=== PATIENT | female | born 1955 | race Caucasian/White ===

== ENCOUNTER → 2019-08-26 | Day surgery (SDC) | payer MEDICARE ==
[2019-08-25 09:59] VITALS: BMI 31.8
--- NOTE | 2019-08-25 14:31 | HP ---
HISTORY AND PHYSICAL DATE OF SURGERY: 08/26/2019 Linda Szymanski is a 64-year-old patient seen with progressive left shoulder pain. We discussed options for treatment. She elected to proceed with left shoulder arthroscopy. Consent regarding the procedure was obtained. PAST MEDICAL HISTORY: Hypertension, hyperlipidemia, iah-qyfdjis-nfkhcclag diabetes. PAST SURGICAL HISTORY: Right shoulder arthroscopy. DAILY MEDICATIONS: Effexor, Januvia, Lipitor, lisinopril. ALLERGIES: None. SOCIAL HISTORY: Denies current tobacco use. PHYSICAL EVALUATION OF THE LEFT SHOULDER: Flexion is 50 degrees. Abduction is 40 degrees, external rotations 0 with pain and weakness. There is tenderness along the anterolateral acromion and rotator cuff insertion site. Impingement is positive at 90, her distal neurovascular exam is intact. Drop-arm sign positive. RADIOGRAPHS OF THE LEFT SHOULDER: Reveal a type 2 anterior acromion, acromioclavicular joint osteoarthritis with cystic changes of the tuberosity. IMPRESSION: 1. Left shoulder impingement with rotator cuff tear. 2. Left shoulder acromioclavicular joint osteoarthritis. 3. Hypertension. 4. Hyperlipidemia. 5. Cyl-zscwgyn-rdxkeqivm diabetes. PLAN: Left shoulder arthroscopy with subacromial decompression, arthroscopic rotator cuff repair, Marina procedure and debridement. MMODL / IJN: [id number] /
[~2019-08-26] MED LIST: GLYCOPYRROLATE 0.2 MG/ML 2 ML VIAL ONE; HYDROmorphone 0.5 MG/0.5 ML SYRINGE IVP PRN; LACTATED RINGERS 1,000 ML IV ONE; LACTATED RINGERS 1,000 ML IV SCH; LIDOCAINE 1% (10MG/ML) FOR IV START INTRADERMA ONE; MIDAZOLAM 2 MG/2 ML VIAL IVP ONE; MIDAZOLAM 2 MG/2 ML VIAL ONE; NEOSTIGMINE 1 MG/ML 10 ML VIAL ONE; ONDANSETRON 4 MG/2 ML VIAL IVP ONE; PROPOFOL 10 MG/ML 20 ML VIAL IV ONE; ROCURONIUM BROMIDE 10 MG/ML 5 ML VIAL IV ONE; ROPIVACAINE 5 MG/ML 30 ML VIAL ONE; fentaNYL (PF) 50 MCG/ML 2 ML AMP IV PRN; fentaNYL (PF) 50 MCG/ML 2 ML AMP IVP ONE; fentaNYL (PF) 50 MCG/ML 2 ML AMP ONE
[2019-08-26 07:13] LABS: Glucose,Whole Blood 161 mg/dL (75-99)
--- NOTE | 2019-08-26 09:46 | P.ANPRN ---
Procedure Note - Anesthesia - Nerve Block Performed Left Interscalene Single Time Out Performed: Yes ([id number]) Date of Procedure: 08/26/19 Procedure Start Time: 08:30 Procedure Stop Time: 08:35 Location of Patient: PreOp Indication: Acute Post-Operative Pain, Requested by Surgeon Specifically requested for management of pain by DrMarguerite: Dariel Urbano Sedation Type: Sedate with meaningful contact maintained Preparation: Sterile Prep Position: Supine Catheter: None Needle Types: Pajunk Needle Gauge: 21 Ultrasound used to visualize needle placement: Yes Ultrasound used to observe medication spread: Yes Injectate: 0.5% Ropivacaine (see comment for volume) (25cc) Blood Aspirated: No Pain Paresthesia on Injection Noted: No Resistance on Injection: Normal Image Stored and Saved: Yes Events: Uneventful and Well Tolerated
[2019-08-26 09:57] VITALS: TEMP 96.8
[2019-08-26 10:06] LABS: Glucose,Whole Blood 136 mg/dL (75-99)
--- NOTE | 2019-08-26 10:20 | P.OP ---
Date of Procedure: 08/26/19 Preoperative Diagnosis: Left shoulder impingement Postoperative Diagnosis: 1. Left shoulder rotator cuff tear 2. Left shoulder impingement 3. Left shoulder acromioclavicular joint osteoarthritis 4. Left shoulder partial long head biceps tendon tea Procedure(s) Performed: 1. Left shoulder arthroscopic rotator cuff repair 2. Left shoulder arthroscopic subacromial decompression 3. Left shoulder arthroscopic Marina procedure 4. Left shoulder arthroscopic biceps tenotomy Implants: 4Arthrex swivel lock anchors Anesthesia: GETA, regional (Interscalene block) Surgeon: Dariel Urbano Sewer Line Photo Inspector #1: Shantanu Nieto Estimated Blood Loss (ml): 8 Pathology: none sent Condition: stable Disposition: PACU Indications for Procedure: 64-year-old patient seen with progressive left shoulder pain. After treatment options were discussed, she elected to proceed with arthroscopy. Operative Findings: See description of procedure Description of Procedure: Patient was taken to the operative suite. The patient received an interscalene block by the department anesthesia for postoperative pain management. The patient underwent a general anesthetic by the department of anesthesia. The patient's placed into a lateral position and secured with appropriate padding of the bony prominence. Left upper extremity was placed into 10 pounds of longitudinal traction. Left shoulder was prepped and draped in the normal sterile orthopedic fashion. A posterior incision was made in the trocar cannula were inserted into the glenohumeral joint and arthroscopy was initiated. I made an incision anteriorly for anterior working portal site. We noted partial tearing long head biceps tendon. We noted grade 1 chondromalacia of the glenohumeral joint. There was no obvious rotator cuff tear. The labrum was probed and found to be stable. I performed an arthroscopic biceps tenotomy. Instruments now removed from the glenohumeral joint. Utilizing the posterior working portal site trocar cannula inserted into the subacromial space. A lateral incision was made. I introduced a trocar. I reduced my ablator and began ablating the thick subacromial bursal tissue exposing the undersurface of the anterior acromion. This is very prominent with diminished subacromial space. I performed a subacromial decompression. There was good synagogue of the cervical subacromial space at this point. We noted significant osteoarthritis of the acromioclavicular joint. I performed arthroscopic Marina procedure. We now turned our attentions rotator cuff. There was about a 2 cm tear along the distal supraspinatus tendon. I debrided the margins getting down to stable tendon tissue. I created an thermal cutting machine operator portal site off the lateral acromion. I introduced 2 anchors for medial row fixation. We now passed all 8 limbs of suture through good bites of rotator cuff tendon. With the assistance of joe JUARES we now crisscrossed the sutures created 2 additional punch hole laterally inserted 2 additional anchors laterally which compressed the tendon along the entire footprint nicely. Residual suture limbs were clipped. We had good compression along the tendon. I injected 1 mL Renyte intra-articular. All portal sites were approximated with nylon suture. Sterile dressings were applied. The patient was placed into a sling shot immobilizer. The patient was awakened, transferred to a bed and recovery stable condition. Milton JUARES assisted with this procedure.
[2019-08-26 10:34] VITALS: RESP 16
[2019-08-26 10:57] VITALS: BP 128/70; PULSE 78
== END | disposition home or self-care (01) ==
LOC: OR 06:34
PROVIDERS: ATTEND Orthopaedic Surgery
DX: M75.102 Unspecified rotator cuff tear or rupture of left shoulder, not specified as traumatic (principal); M75.42 Impingement syndrome of left shoulder; M19.012 Primary osteoarthritis, left shoulder; M94.212 Chondromalacia, left shoulder; S46.112A Strain of muscle, fascia and tendon of long head of biceps, left arm, initial encounter; I12.9 Hypertensive chronic kidney disease with stage 1 through stage 4 chronic kidney disease, or unspecified chronic kidney disease; E11.22 Type 2 diabetes mellitus with diabetic chronic kidney disease; N18.3 Chronic kidney disease, stage 3 (moderate); E78.5 Hyperlipidemia, unspecified; D86.9 Sarcoidosis, unspecified; K21.9 Gastro-esophageal reflux disease without esophagitis; Z79.84 Long term (current) use of oral hypoglycemic drugs; Z79.899 Other long term (current) drug therapy; Z95.0 Presence of cardiac pacemaker
CPT/HCPCS: 64415; 76942; 29824; 29826; 29827; C1713 ×2; C1894; J2250; J2710; J2405; J0690; J3010; J2795; J2704